=== PATIENT | female | born 1995 | race Caucasian/White ===

== ENCOUNTER 2022-03-24 14:32 | Emergency (ER) | payer BC ==
[2022-03-24 15:15] LABS: Urine Blood 3+ (Negative); Urine Glucose Negative (Negative); Urine Protein Negative (Negative); Urine Specific Gravity 1.025 (1.005-1.030)
[2022-03-24 15:25] LABS: Absolute Lymphocytes (CBC) 2.8 K/uL (0.7-4.9); Lymphocytes % 24.7 % (15.3-44.8); MPV 9.8 fL (7.6-11.3); RBC Red Blood Cell Count 4.75 M/uL (3.86-4.86)
[2022-03-24 15:55] LABS: Potassium 3.7 mmol/L (3.5-5.1)
[2022-03-24 16:15] LABS: Urine Specific Gravity/Preg 1.025 (1.005-1.030)
--- NOTE | 2022-03-24 17:16 | RAD REPORT ---
EXAM DESCRIPTION: US - Transvaginal OB - 03/24/2022 5:06 pm CLINICAL HISTORY: VAGINAL BLEEDING Positive test, pelvic pain COMPARISON: OB Limited dated 2OB Limited dated 03/24/2022 FINDINGS: Uterus is normal in size. Mildly thickened endometrium is seen measuring 9 mm. There is no IUP evident. Right ovary measures 3.3 x 2.1 cm. Normal blood flow seen in the right ovary. Left ovary appears obscured by bowel gas. No significant pelvic ascites. IMPRESSION: Thickened endometrial stripe is seen without evidence of IUP. In the setting of a positi ve HCG measurement, this would represent a of unknown location and close interval follow-up serial HCG levels and pelvic sonography would be recommended.
--- NOTE | 2022-03-24 17:18 | RAD REPORT ---
EXAM DESCRIPTION: US - OB Limited - 03/24/2022 5:02 pm CLINICAL HISTORY: VAG BLEEDING age. COMPARISON: No comparisons FINDINGS: A large is cystic lesion is seen in the pelvis superior to the uterus. This is of indeterminate etiol ogy but may represent a large ovarian cystadenoma or similar lesion. Given the patient's potential on going early , MRI of the pelvis could be considered for followup evaluation.
--- NOTE | 2022-03-24 19:03 | EDPHYS ---
Physician Documentation [facility] Name: Dru Mcduffie Age: 27 yrs Sex: Female : 1995 Arrival Date: 03/24/2022 Time: 14:37 Bed 20 Private MD: ED Physician Christian Dick HPI: 03/24 14:51 This 27 yrs old Female presents to ER via Ambulatory with complaints of Vaginal jmm Bleeding, + Preg <12wks, Abdominal Cramping. 14:51 This is a 27-year-old the presents emerged department with complaints of vaginal jmm bleeding with mild pelvic cramping. Symptoms began yesterday. Patient denies weakness or fatigue. Denies fever, denies dysuria.. Historical: - Allergies: 14:54 No Known Allergies; ph - PMHx: 14:54 None; ph - PSHx: 14:54 knee; ph - Immunization history:: Adult Immunizations unknown. - Social history:: Smoking status: Patient denies any tobacco usage or history of. ROS: 14:51 Constitutional: Negative for fever, chills, and weight loss, Cardiovascular: Negative jmm for chest pain, palpitations, and edema, Respiratory: Negative for shortness of breath, cough, wheezing, and pleuritic chest pain, Abdomen/GI: Negative for abdominal pain, nausea, vomiting, diarrhea, and constipation. 14:51 : Positive for vaginal bleeding. 14:51 All other systems are negative. Exam: 14:51 Constitutional: This is a well developed, well nourished patient who is awake, alert, jmm and in no acute distress. Head/Face: atraumatic. Eyes: EOMI, no conjunctival erythema appreciated ENT: Moist Mucus Membranes Neck: Trachea midline, Supple Chest/axilla: Normal chest wall appearance and motion. Cardiovascular: Regular rate and rhythm. No edema appreciated Respiratory: Normal respirations, no respiratory distress appreciated Abdomen/GI: Non distended, soft Back: Normal ROM Skin: General appearance color normal MS/ Extremity: Moves all extremities, no obvious deformities appreciated, no edema noted to the lower extremities Neuro: Awake and alert Psych: Behavior is normal, Mood is normal, Patient is cooperative and pleasant Vital Signs: 14:51 BP 146 / 86; Pulse 93; Resp 18; Temp 98.4; Pulse Ox 96% on R/A; Weight 104.33 kg; ph Height 5 ft. 9 in. (175.26 cm); 15:35 BP 120 / 68; Pulse 71; Resp 16; Pulse Ox 97% on R/A; jb4 17:45 BP 144 / 87; Pulse 63; Resp 16; Pulse Ox 97% on R/A; jb4 18:45 BP 118 / 70; Pulse 57; Resp 16; Pulse Ox 99% on R/A; jb4 14:51 Body Mass Index 33.96 (104.33 kg, 175.26 cm) ph MDM: 14:[address] [facility] 19:02 Data reviewed: vital signs, nurses notes. Counseling: I had a detailed discussion with leandro the patient and/or guardian regarding: the historical points, exam findings, and any diagnostic results supporting the discharge/admit diagnosis, the need for outpatient follow up, to return to the emergency department if symptoms worsen or persist or if there are any questions or concerns that arise at home. 03/24 14:58 Order name: Abo/rh Typing 03/24 14:58 Order name: Basic Metabolic Panel; Complete Time: 15:59 03/24 14:58 Order name: CBC with Diff; Complete Time: 15:59 03/24 14:58 Order name: Quantitative Hcg; Complete Time: 15:59 03/24 15:15 Order name: Urine Dipstick-Ancillary; Complete Time: 15:15 [facility] 03/24 15:15 Order name: Urine --Ancillary (enter results); Complete Time: 16:31 dh3 03/24 17:01 Order name: Transvaginal OB; Complete Time: 17:18 [facility] 03/24 17:46 Order name: ABO/RH no charge [facility] 03/24 17:54 Order name: Antibody Screen [facility] 03/24 17:54 Order name: Rh Typing [facility] 03/24 17:54 Order name: Fetalscreen EDID 03/24 17:54 Order name: Cord Rh type [facility] 03/24 17:54 Order name: Rhogam [facility] 03/24 14:58 Order name: IV Saline Lock; Complete Time: 15:15 ph 03/24 14:58 Order name: Labs collected and sent; Complete Time: 15:16 ph 03/24 14:58 Order name: NPO; Complete Time: 15:16 ph 05 14:58 Order name: Urine Dipstick-Ancillary (obtain specimen); Complete Time: 15:16 ph 06 14:58 Order name: Urine Test (obtain specimen); Complete Time: 15:16 ph 03/24 17:02 Order name: OB Limited; Complete Time: 17:23 EDMS Administered Medications: 19:00 Drug: RhoGAM (Human) 300 mcg Route: IM; Site: right deltoid; jb4 19:28 Follow up: Response: No adverse reaction jb4 Disposition Summary: 03/24/22 19:03 Discharge Ordered Location: Home [facility] Condition: Stable jmm Diagnosis - Threatened [facility] Followup: [facility] - With: Dillon Ybarra MD - When: 2 - 3 days - Reason: Recheck today's complaints, Continuance of care, Re-evaluation by your physician Discharge Instructions: - Discharge Summary Sheet jmm - Rh Incompatibility jmm - Threatened Miscarriage jm Forms: - Medication Reconciliation Form [facility] - Thank You Letter [facility] - Antibiotic Education jm - Prescription Opioid Use [facility] Signatures: Dispatcher [employer] EDMS Luis Alfredo Jeff PA PA Jaki Sheehan, RN RN Tyrone Echols, RN RN jb4 Corrections: (The following items were deleted from the chart) 17:01 15:26 1st Trimest Single 1st Fetus+US.RAD.BRZ ordered. EDMS EDMS
--- NOTE | 2022-03-24 19:03 | ER ---
Nurse's Notes [facility] Name: Dru Mcduffie Age: 27 yrs Sex: Female : 1995 Arrival Date: 03/24/2022 Time: 14:37 Bed 20 Private MD: Diagnosis: Threatened Presentation: 03/24 14:51 Chief complaint: Patient states: Approx 5 weeks , began having vaginal bleeding ph 2-3 days describes as spotting, only present after wiping, small clots today, also c/o mild cramping. Coronavirus screen: Vaccine status: Patient reports receiving the 1st dose of the Covid vaccine. Ebola Screen: No symptoms or risks identified at this time. Initial Sepsis Screen: Does the patient meet any 2 criteria? No. Patient's initial sepsis screen is negative. Does the patient have a suspected source of infection? No. Patient's initial sepsis screen is negative. Risk Assessment: Do you want to hurt yourself or someone else? Patient reports no desire to harm self or others. Onset of symptoms was March 24, 2022. 14:51 Method Of Arrival: Ambulatory ph 14:51 Acuity: JONATHON 3 ph Triage Assessment: 14:55 General: Appears in no apparent distress. comfortable, Behavior is cooperative, ph appropriate for age, crying. Pain: Complains of pain in suprapubic area Quality of pain is described as crampy. Neuro: Level of Consciousness is awake, alert, obeys commands, Oriented to person, place, time, situation. : Reports cramping, vaginal bleeding that is light flow, spotty. Derm: Skin is intact, is healthy with good turgor, Skin is pink, warm \T\ dry. Historical: - Allergies: 14:54 No Known Allergies; ph - PMHx: 14:54 None; ph - PSHx: 14:54 knee; ph - Immunization history:: Adult Immunizations unknown. - Social history:: Smoking status: Patient denies any tobacco usage or history of. Screenin:45 Abuse screen: Denies threats or abuse. Nutritional screening: No deficits noted. jb4 Tuberculosis screening: No symptoms or risk factors identified. Fall Risk None identified. Assessment: 15:35 Reassessment: Patient appears in no apparent distress at this time. Patient and/or jb4 family updated on plan of care and expected duration. Pain level reassessed. Patient is alert, oriented x 3, equal unlabored respirations, skin warm/dry/pink. 16:30 Reassessment: Patient appears in no apparent distress at this time. Patient and/or jb4 family updated on plan of care and expected duration. Pain level reassessed. Patient is alert, oriented x 3, equal unlabored respirations, skin warm/dry/pink. 17:45 Reassessment: Patient appears in no apparent distress at this time. Patient and/or jb4 family updated on plan of care and expected duration. Pain level reassessed. Patient is alert, oriented x 3, equal unlabored respirations, skin warm/dry/pink. 19:26 Reassessment: Patient appears in no apparent distress at this time. Patient and/or jb4 family updated on plan of care and expected duration. Pain level reassessed. Patient is alert, oriented x 3, equal unlabored respirations, skin warm/dry/pink. Vital Signs: 14:51 BP 146 / 86; Pulse 93; Resp 18; Temp 98.4; Pulse Ox 96% on R/A; Weight 104.33 kg; ph Height 5 ft. 9 in. (175.26 cm); 15:35 BP 120 / 68; Pulse 71; Resp 16; Pulse Ox 97% on R/A; jb4 17:45 BP 144 / 87; Pulse 63; Resp 16; Pulse Ox 97% on R/A; jb4 18:45 BP 118 / 70; Pulse 57; Resp 16; Pulse Ox 99% on R/A; jb4 14:51 Body Mass Index 33.96 (104.33 kg, 175.26 cm) ph ED Course: 14:05 Initial lab(s) drawn, by ct, sent to lab. Inserted saline lock: 20 gauge in right dh3 forearm, using aseptic technique. Blood collected. 14:37 Patient arrived in ED. rg4 14:46 Luis Alfredo Jeff PA is PHCP. jmm 14:46 Christian Dick MD is Attending Physician. jmm 14:54 Triage completed. ph 14:54 Arm band placed on Patient placed in an exam room. ph 15:35 Tyrone Echols, CJ is Primary Nurse. jb4 17:01 Transvaginal OB In Process Unspecified. EDMS 17:02 OB Limited In Process Unspecified. EDMS 18:45 Patient has correct armband on for positive identification. Bed in low position. Call jb4 light in reach. Side rails up X 1. Client placed on continuous cardiac and pulse oximetry monitoring. NIBP monitoring applied. 19:02 Dillon Ybarra MD is Referral Physician. [facility] 19:28 No provider procedures requiring assistance completed. IV discontinued, intact, jb4 bleeding controlled, No redness/swelling at site. Pressure dressing applied. Administered Medications: 19:00 Drug: RhoGAM (Human) 300 mcg Route: IM; Site: right deltoid; jb4 19:28 Follow up: Response: No adverse reaction jb4 Medication: 18:45 VIS not applicable for this client. jb4 Outcome: 19:03 Discharge ordered by . [facility] 19:28 Discharged to home ambulatory. jb4 19:28 Condition: stable 19:28 Discharge instructions given to patient, family, Instructed on discharge instructions, follow up and referral plans. Demonstrated understanding of instructions, follow-up care. 19:28 Patient left the ED. jb4 Signatures: Dispatcher [employer] EDMS Luis Alfredo Jeff PA PA Jaki Sheehan, RN RN Lori Thompson rg4 Tyrone Echols RN RN jb4 Nory Hein 3
[2022-03-24 19:33] VITALS: TEMP 98.4
[2022-03-24 19:39] VITALS: BP 118/70; O2SAT 99
== END 2022-03-24 19:28 | disposition home or self-care (01) ==
LOC: ER 14:32
DX: O20.0 Threatened abortion (principal); Z3A.01 Less than 8 weeks gestation of pregnancy
CPT/HCPCS: 85025; 80048; 36415; 86900; 86850; 81025; 86901 ×2; 84702; 81003; 76815; 76817; 96372; 99284; J2790

== ENCOUNTER 2024-02-02 19:07 | Emergency (ER) | payer BC ==
--- OUTSIDE RECORDS SUMMARY | 2024-02-02 19:10 | XMS REPORT | Continuity of Care Document ---
Author Name Unknown Address [address] [facility] [place] [address] [facility] Address [address] [facility] [address] [place] [address] Care Team Providers Care Conveyor Tender Name Role Phone CHRISTIANO_CLAIRE_Sebastian_J Attending Clinician Unavail able CHRISTIANO_WARNER_Sebastian_Pete Attending Clinician Unavaila Teressa Barber Attending Clinician Un available Jake Ramey Attending Clinician Unavailable CHRISTIANO_CLAIRE_Sebastian_Pete Admitting Clinician Unavail able CHRISTIANO_WARNER_Sebastian_Pete Admitting Clinician Unavaila Palomo Ross Admitting Clinician Unavailable Physician, No Primary or Family Admitting Clinic breanna Unavailable Payers Payer Name Policy Type Policy Number Effective Date Expirati on Date Source [place] [id number] 2023 00:00:00 [employer] (PPO) [id number] Problems Condition Name Condition Details Condition Category Status Onset Date Resolution Date Last Treatment Date Treating Clinician Comments Source RhD negative RhD Negative Problem Active 01-19 00:00: 00 [facility] Missed miscarriag e Missed Miscarriag e Problem Active 01-12 00:00: 00 [facility] Amenorrhea Amenorrhea Problem Active 12-16 00:00: 00 [facility] Allergies, Adverse Reactions, Alerts Allergy Name Allergy Type Status Severity Reaction(s) Onset Date Inactive Date Treating Clinician Comments Source No Known Allergie s DA Active U 8-03 00:00: 00 [facility] No Known Allergie s DA Active U 3-19 00:00: 00 [facility] Social History Smoking Status Start Date Stop Date Source Former Smoker [facility] Medications Ordered Medication Name Filled Medication Name Start Date Stop Date Current Medication? Ordering Clinician Indication Dosage Frequency Signature (SIG) Comments Components Source Baby Aspirin 81 mg chewable tablet Chew 1 tablet every day by oral route. Baby Aspirin 81 mg chewable tablet Chew 1 tablet every day by oral route. No 1 Q1D Baby Aspirin 81 mg chewable tablet Chew 1 tablet every day by oral route. [facility] No [facility] progesteron e micronized 100 mg capsule TAKE 1 CAPSULE BY MOUTH EVERY DAY progesteron e micronized 100 mg capsule TAKE 1 CAPSULE BY MOUTH EVERY DAY No progestero ne micronized 100 mg capsule TAKE 1 CAPSULE BY MOUTH EVERY DAY [facility] RhoGAM Ultra-Filte red PLUS 1,500 unit (300 mcg) intramuscul ar syringe Inject 1 syringe as needed by intramuscul ar route as directed for 1 day. RhoGAM Ultra-Filte red PLUS 1,500 unit (300 mcg) intramuscul ar syringe Inject 1 syringe as needed by intramuscul ar route as directed for 1 day. No 1syring e(s) RhoGAM Ultra-Filt ered PLUS 1,500 unit (300 mcg) intramuscu lar syringe Inject 1 syringe as needed by intramuscu lar route as directed for 1 day. [facility] Vital Signs Vital Name Observation Time Observation Value Comments S ource BP Systolic 2024-01-26 00:00:00 140 mm[Hg] [facility] Body Weight 2024-01-26 00:00:00 232 [lb_av] [facility] BMI (Body Mass Index) 2024-01-26 00:00:00 34.3 kg/m2 [facility] Height 2024-01-26 00:00:00 69 [in_i] [facility] BP Diastolic 2024-01-26 00:00:00 76 mm[Hg] [facility] BP Diastolic 2024-01-13 00:00:00 76 mm[Hg] [facility] Height 2024-01-13 00:00:00 69 [in_i] [facility] BP Systolic 2024-01-13 00:00:00 122 mm[Hg] [facility] BP Systolic 2023-12-15 00:00:00 118 mm[Hg] [facility] BMI (Body Mass Index) 2023-12-15 00:00:00 33.5 kg/m2 [facility] Height 2023-12-15 00:00:00 69 [in_i] [facility] BP Diastolic 2023-12-15 00:00:00 70 mm[Hg] [facility] Body Weight 2023-12-15 00:00:00 227 [lb_av] [facility] Procedures Procedure Date / Time Performed Performing Clinicia n Source US, obstetric, 1st trimester 2024-01-26 00:00:00 [facility] US, obstetric, 1st trimester 2024-01-12 00:00:00 [facility] US UTERUS 14 WK TRANSABDL GESTAT 2024-01-05 00:00:00 [facility] US, obstetric, 1st trimester 2024-01-05 00:00:00 [facility] US UTERUS 14 WK TRANSABDL GESTAT 2023-12-15 00:00:00 [facility] US, obstetric, 1st trimester 2023-12-15 00:00:00 [facility] Operation on Eyelid [facility] ed[facility] dical Ectopic [facility] Encounters Start Date/Time End Date/Time Encounter Type Admission Type Attending [facility] Care Facility Care Department Encounter ID Source 2024-01-26 00:00:00 2024-01-26 00:00:00 Slava Cortes MD: [address] [place] [address], [address], [place] [address] , Ph. CHRISTIANO_CLAIRE _Sebastian_Pete [facility] - CHRISTIANO_WARNER_ [place] Office* [id number] [facility] 2024-01-23 00:00:00 2024-01-23 00:00:00 Outpatient CHRISTIANO_WARNER_ Hemant [facility] [id number] [facility] 2024-01-20 00:00:00 2024-01-20 00:00:00 Slava Cortes MD: [address], [facility] [place] [address] , Ph. GC_WARNER_ Sebastian_J [facility] - GC_SWHAOMC_ [place] [id number] [facility] 2024-01-15 00:00:00 2024-01-15 00:00:00 Outpatient GC_MATTEO Cortes_J PRIV PRIV [id number] [facility] 2024-01-13 00:00:00 2024-01-13 00:00:00 Slava Cortes MD: [address] [place] [address], [address], [place] [address] , Ph. GC_WARNER_ Sebastian_Pete [facility] - GC_SWHAOMC_ [place] [facility]* [id number] [facility] 2024-01-06 00:00:00 2024-01-06 00:00:00 Outpatient GC_BULMAROCBoo Cortes_J PRIV PRIV [id number] [facility] 2024-01-05 00:00:00 2024-01-05 00:00:00 Slava Cortes MD: [address] [facility] [address], [address], [place] [address] , Ph. GC_MATTEO Cortes_Pete [facility] - GC_[facility]_ [place] [facility]* [id number] [facility] 2024-01-05 00:00:00 2024-01-05 00:00:00 Slava Cortes MD: [address] [place] [address], [address], [place] [address] , Ph. [facility] - GC_SWHAOMC_ [place] Office* [id number] [facility] 2023-12-30 00:00:00 2023-12-30 00:00:00 Outpatient GC_SWHAOMCBoo Cortes_J PRIV PRIV [id number] [facility] 2023-12-29 00:00:00 2023-12-29 00:00:00 Outpatient GC_LENNYOMC_ Sebastian_J PRIV PRIV [id number] [facility] 2023-12-20 00:00:00 2023-12-20 00:00:00 Outpatient GC_SWHAOMC_ Sebastian_J PRIV PRIV [id number] [facility] 2023-12-16 00:00:00 2023-12-16 00:00:00 Outpatient GC_BULMAROC_ Sebastian_J PRIV PRIV [id number] [facility] 2023-12-16 00:00:00 2023-12-16 00:00:00 Outpatient GC_LENNYOMC_ Sebastian_J PRIV PRIV [id number] [facility] 2023-12-15 00:00:00 2023-12-15 00:00:00 Slava Cortes MD: [address] [facility] [address], [address] [address] , Ph. GC_LENNYOMC_ Sebastian_J [facility] - GC_SWHAOMC_ [place] [facility]* [id number] [facility] 2023-12-15 00:00:00 2023-12-15 00:00:00 Slava Cortes MD: [address] [facility] [address], [address] [address] , Ph. [facility] - GC_SWHAOMC_ [place] [facility]* [id number] [facility] 2023-12-14 00:00:00 2023-12-14 00:00:00 Outpatient PRIV PRIV [id number] [facility] 2022-05-23 09:04:00 2022-05-23 09:04:00 Outpatient Teressa Brian [facility] [id number] [facility] 2022-05-23 09:04:00 2022-05-23 09:04:00 Outpatient Teressa Brian [facility] [id number] [facility] 2022-01-05:35:00 2022-01-05 12:22:00 Emergency EM Jake Ramey [facility] [id number] 33 [facility] Results Test Description Test Time Test Comments Results Result Co mments Source [facility] subunit [Units/volume] in Serum or Plasma 2024-01-12 00:00:00* Test Item Value Reference Range Interpretation Comme nts HCG (test code = HCG) 81277 mIU/mL [facility]horiogonadotropin.beta subunit [Units/volume] in Serum or Plasma 2024-01-07 00:00:00* Test Item Value Reference Range Interpretation Comme nts HCG (test code = HCG) 09258 mIU/mL [facility] Free [Mass/volume] in Serum or [id number] 00:00:00* Test Item Value Reference Range Interpretation Comme nts progesterone (test code = progesterone) 5.81 NG/mL [facility]horiogonadotropin.beta subunit [Units/volume] in Serum or Plasma 2024-01-07 00:00:00* Test Item Value Reference Range Interpretation Comme nts HCG (test code = HCG) 66303 mIU/mL [facility] Free [Mass/volume] in Serum or [id number] 00:00:00* Test Item Value Reference Range Interpretation Comme nts progesterone (test code = progesterone) 5.81 NG/mL [facility]iogonadotropin.beta subunit [Units/volume] in Serum or Plasma 2024-01-05 00:00:00* Test Item Value Reference Range Interpretation Comme nts HCG (test code = HCG) 62084 mIU/mL [facility] Free [Mass/volume] in Serum or [id number] 00:00:00* Test Item Value Reference Range Interpretation Comme nts progesterone (test code = progesterone) 7.68 NG/mL [facility]horiogonadotropin.beta subunit [Units/volume] in Serum or Plasma 2024-01-05 00:00:00* Test Item Value Reference Range Interpretation Comme nts HCG (test code = HCG) 61233 mIU/mL [facility] Free [Mass/volume] in Serum or [id number] 00:00:00* Test Item Value Reference Range Interpretation Comme nts progesterone (test code = progesterone) 7.68 NG/mL [facility]iogonadotropin.beta subunit [Units/volume] in Serum or Plasma 2023-12-25 00:00:00* Test Item Value Reference Range Interpretation Comme nts HCG (test code = HCG) 5627 mIU/mL [facility]iogonadotropin.beta subunit [Units/volume] in Serum or Plasma 2023-12-25 00:00:00* Test Item Value Reference Range Interpretation Comme nts HCG (test code = HCG) 5627 mIU/mL [facility]iogonadotropin.beta subunit [Units/volume] in Serum or Plasma 2023-12-22 00:00:00* Test Item Value Reference Range Interpretation Comme nts HCG (test code = HCG) 3098 mIU/mL [facility] Free [Mass/volume] in Serum or [id number] 00:00:00* Test Item Value Reference Range Interpretation Comme nts progesterone (test code = progesterone) 9.24 NG/mL [facility]horiogonadotropin.beta subunit [Units/volume] in Serum or Plasma 2023-12-22 00:00:00* Test Item Value Reference Range Interpretation Comme nts HCG (test code = HCG) 974 mIU/mL [facility] Free [Mass/volume] in Serum or [id number] 00:00:00* Test Item Value Reference Range Interpretation Comme nts progesterone (test code = progesterone) 7.54 NG/mL [facility]horiogonadotropin.beta subunit [Units/volume] in Serum or Plasma 2023-12-16 00:00:00* Test Item Value Reference Range Interpretation Comme nts HCG (test code = HCG) 168 mIU/mL [facility]horiogonadotropin.beta subunit [Units/volume] in Serum or Plasma 2023-12-16 00:00:00* Test Item Value Reference Range Interpretation Comme nts HCG (test code = HCG) 168 mIU/mL [facility] Free [Mass/volume] in Serum or [id number] 00:00:00* Test Item Value Reference Range Interpretation Comme nts progesterone (test code = progesterone) 11.30 NG/mL [facility] Free [Mass/volume] in Serum or [id number] 00:00:00* Test Item Value Reference Range Interpretation Comme nts progesterone (test code = progesterone) 11.30 NG/mL [facility] [id number] 13:41:00* Test Item Value Reference Range Interpretation Comme nts SURGICAL (test code = SR) RUN DATE: 05/27/22 [facility] PAGE 1 RUN TIME: 1341 Specimen Inquiry RUN USER: INTERFACE BURT ENT: JOSE ARMANDO HAIRSTON LOC: [facility] U #: [id number] AGE/SX: 27/F ROOM: RE05/23/22REG DR: Teressa Miles : 95 BED: DIS: STATUS: KAYLA ISSA TLOC: SPEC #: [id number] RECD: 05/24/22 STATUS: MORE DICKSON #: [id number] SUSIE: 05/23/22-[address]: Teressa Miles MD ENTERED: 05/24/22 SP TYPE: SURGICAL OTHR DR: Palomo Gramajo MD ORDERED: 69512/2, ANATOMIC SPEC, SPECIMEN TRACK COPIES TO: Teressa Miles MD [address] [facility] [place] [address] [place] [address] Palomo Gramajo MD [address] [place] [address] [address] [place] [address] PROCEDURES: [id number] (05/24/22) SPECIMEN TRACK (05/24/22) TISSUES: A. CYST--CERVIX - LEFT CYST B. TUBAL LIGATION - RIGHT TUBAL CONTENT FINAL DIAGNOSIS A. Designated left paraovarian-tubal cyst, excision:- Serous cystadenoma B. Designated right tubal contents:- Ectopic tubal (blood clot containing minute rare chrorionic villi) Comment: Negative for atypia/malignancy. The HCG urine test was reported as negative. Howevermorphologically, very scant minute chorionic villi is present within abundant blodd clots.Suggest clnical correlation. GROSS DESCRIPTION A. Left paravarian-tubal cyst.It consists of a collapsed cyst measuring 10 x 5 x 8 cm and has awall thickness 0.2-0.4 cm. The cyst lining is vascular and smooth. No papillaryexcrescences are identified. Multiple sections submitted as A1-A8. B. Right tube contents. It consists of blood clot measuring aggregate 2.5 x 2 x 0.5 cm. All as B1. CONTINUED ON NEXT PAGE RUN DATE: 05/27/22 [facility] PAGE 2 RUN TIME: 1341 Specimen Inquiry RUN USER: INTERFACE SPEC #: [id number]:[facility]:[id number] PATIENT: JOSE ARMANDO HAIRSTON #[id number] (Continued) ------- GROSS DESCRIPTION (Continued) Technical component performed at [employer],[id number] , [place] [address] Unless gross only, the diagnosis is based upon microscopic examination.Immunohistochemistry : This test was developed and its performancecharacteristics determined by this laboratory. It has not been approved nordoes it need approval by the [place] FDA. Appropriate positive and negative controlsare reviewed and judged to be acceptable. This laboratory is certified underthe Clinical Laboratory Improvement Amendments (CLIA-88) as qualified toperform high complexity clinical laboratory testing. MICROSCOPIC DESCRIPTION Findings are incorporated into the diagnosis/comment sections. Signed SIGNATURE ON FILE Marito Hernández 05/27/22 1341 END OF REPORT CYTOLOGY NON [id number] 13:40:00* Test Item Value Reference Range Interpretation Comme nts CYTOLOGY NON ELECTRO OPTICS ENGINEER (test code = CR) RUN DATE: 05/27/22 [facility] PAGE 1 RUN TIME: 1340 Specimen Inquiry RUN USER: INTERFACE BURT ENT: JOSE ARMANDO HAIRSTON LOC: [facility] U #: [id number] AGE/SX: 27/F ROOM: RE05/23/22[facility] DR: Teressa Miles : 95 BED: DIS: STATUS: KAYLA ISSA TLOC: SPEC #: [id number] RECD: 05/24/22 STATUS: MORE DICKSON #: [id number] SUSIE: 05/23/[address] [facility] [address]: Teressa Miles MD ENTERED: 05/24/22 SP TYPE: CYTO NGYN OTHR DR: Palomo Gramajo MD ORDERED: [id number], [id number], ANATOMIC SPEC, SPECIMEN TRACK COPIES TO: Teressa Miles MD [address] [place] [address] [address] [place] [address] Palomo Gramajo MD [address] [place] [address] [address] [place] [address] PROCEDURES: [id number] (05/27/22) 72221 (05/27/22) SPECIMEN TRACK (05/24/22) TISSUES: A. PELVIC FLUID - PELVIC WASHINGS (CYTOLOGY) FINAL DIAGNOSIS Pelvic washings, cytology and cell block:- Benign- Consistent with minute serous papillary formation, cytologically without atypia Comment: Please refer to concomitant surgical specimen [id number]. Suggest clinical correlation. GROSS DESCRIPTION Pelvic washing. It consists of 35 cc of colorless clear fluid. It is submitted forcytologic preparation. Thin prep: 1 Cell block: 1 Technical component performed at [facility] [address] , [place] [address] Unless gross only, the diagnosis is based upon microscopic examination.Immunohistochemistry : This test was developed and its performancecharacteristics determined by this laboratory. It has not been approved nor CONTINUED ON NEXT PAGE RUN DATE: 05/27/22 [facility] PAGE 2 RUN TIME: 1340 Specimen Inquiry RUN USER: INTERFACE SPEC #: [id number]:[facility]:[id number] PATIENT: JOSE ARMANDO HAIRSTON #[id number] (Continued) ------- GROSS DESCRIPTION (Continued) does it need approval by the FDA. Appropriate positive and negative controlsare reviewed and judged to be acceptable. This laboratory is certified underthe Clinical Laboratory Improvement Amendments (CLIA-88) as qualified toperform high complexity clinical laboratory testing. MICROSCOPIC DESCRIPTION Findings are incorporated into the diagnosis/comment sections. Signed SIGNATURE ON FILE HernándezMarito 05/27/22 1340 END OF REPORT COVID 19 INHOUSE [id number] 10:30:00* Test Item Value Reference Range Interpretation Comme nts COVID 19 INHOUSE AG (test code = [id number]) NEGATIVE Negative Per senior dentist , negative results should be treated aspresumptive and, if inconsistent with clinical signs andsymptoms or necessary for patient management, should betested with an alternative molecular assay. Negative resultsdo not preclude SARS-CoV-2 infection and should not be usedas the sole basis for patient management decisions. Negative results should be considered in the context of apatient's recent exposures, history, presence of clinicalsigns and symptoms consistent with COVID-19. URINALYSIS [id number] 10:13:00* Test Item Value Reference Range Interpretation Comme nts UA GLUCOSE DIPSTICK (test code = DGLUU) NEGATIVE mg/dL NEG UA BILIRUBIN DIPSTICK (test code = BILU) NEGATIVE mg/dL NEG UA KETONE DIPSTICK (test code = KETU) NEGATIVE mg/dL NEG UA SPECIFIC GRAVITY (test code = SGU) <=1.005 SG 1.005-1.030 UA BLOOD DIPSTICK (test code = SAY) 2+ mg/DL NEG A UA PH DIPSTICK (test code = XAVI) 6.5 pH UNITS 5.0-7.0 UA PROTEIN DIPSTICK (test code = PROU) NEGATIVE mg/dL NEG UA UROBILINIOGEN DIPSTICK (test code = URO) 0.2 mg/dL <2.0 UA NITRITE DIPSTICK (test code = TRESA) NEGATIVE SCREEN NEG UA LEUKOCYTE ESTERASE DIPSTICK (test code = LEUU) NEGATIVE Leuk/mcL NEGATIVE Urine Specimen Type: Clean CatchUR HCG [id number] 10:13:00* Test Item Value Reference Range Interpretation Comme nts UR HCG QUAL (test code = HCGQLU) NEGATIVE NEGATIVE Urine Specimen Type: Clean CatchCBC W/AUTO [id number] 10:13:00* Test Item Value Reference Range Interpretation Comme nts WHITE BLOOD CELL (test code = WBC) 7.4 K/mm3 3.5-11.0 N RED BLOOD CELL (test code = RBC) 4.78 M/mm3 4.70-6.10 N HEMOGLOBIN (test code = HGB) 14.0 G/DL 10.4-14.9 N HEMATOCRIT (test code = HCT) 41.3 % 31.5-44.1 N MEAN CELL VOLUME (test code = MCV) 86.4 Fl 84.5-98.6 N MEAN CELL HGB (test code = MCH) 29.3 pg 27.0-34.2 N MEAN CELL HGB CONCETRATION (test code = MCHC) 33.9 G/DL 31.5-34.0 N RED CELL DISTRIBUTION WIDTH (test code = RDW) 12.5 SD 11.5-14.5 N PLATELET COUNT (test code = PLT) 215 K/mm3 150-450 N MEAN PLATELET VOLUME (test c ode = MPV) 11.10 fL 7.0-10.5 H NEUTROPHIL % (test code = NT%) 52.8 % 40-76 N IMMATURE GRANULOCYTE % (test code = IG%) 0.4 % 0.0-5.0 N LYMPHOCYTE % (test code = LY%) 35.4 % 20.5-51.1 N MONOCYTE % (test code = MO%) 8.7 % 1.7-9.3 N EOSINOPHIL % (test code = EO%) 2.2 % 0.0-6.0 N BASOPHIL % (test code = BA%) 0.5 % 0.0-2.0 N NUCLEATED RBC % (test code = NRBC%) 0.0 /100WBC% 0.0-1.0 N NEUTROPHIL # (test code = NT#) 3.9 K/mm3 1.8-7.6 N IMMATURE GRANULOCYTE # (test code = IG#) 0.03 x10 3/uL 0.00-0.03 N LYMPHOCYTE # (test code = LY#) 2.6 K/mm3 0.6-3.2 N MONOCYTE # (test code = MO#) 0.6 K/mm3 0.3-1.1 N EOSINOPHIL # (test code = EO#) 0.2 K/mm3 0.0-0.4 N BASOPHIL # (test code = BA#) 0.0 K/mm3 0.0-0.1 N NUCLEATED RBC # (test code = NRBC#) 0.0 K/mm3 0.0-0.1 N MANUAL DIFF REQUIRED (test c ode = MDIFF) NO DIFF/SCN CRITERIA BASIC METABOLIC [id number] 11:27:00* Test Item Value Reference Range Interpretation Comme nts SODIUM (test code = NA) 143 mEq/L 134-147 N POTASSIUM (test code = K) 3.8 mEq/L 3.4-5.0 N CHLORIDE (test code = CL) 107 mEq/L 100-108 N CARBON DIOXIDE (test code = CO2) 24 mEq/l 21-33 N ANION GAP (test code = GAP) 15 0-20 N GLUCOSE (test code = GLU) 88 mg/dL 70-110 N BLOOD UREA NITROGEN (test code = BUN) 10 mg/dL 7-18 N GLOMERULAR FILTRATION RATE (test code = GFR) 75.7 110-120 L Units of measure = ml/min/1.73 m2 CREATININE (test code = CREAT) 0.9 mg/dL 0.6-1.3 N CALCIUM (test code = CA) 9.5 mg/dL 8.0-10.5 N HCG [id number] 11:27:00* Test Item Value Reference Range Interpretation Comme nts HCG SERUM (test code = HCG) < 2.6 0 - 6 NOT PREGNA NT > 6 SUGGESTIVE OF EARLY RISES TWO FOLD EVERY 2 DAYS; SUGGEST RECONFIRMING AFTER 2 DAYS. 150,000-200,[address] TRIMESTER 10,000 - 50,000 2ND & 3RD TRIMESTERResults in nic-International Units/mL UA RFLX MICR CULT IF [id number] 11:20:00* Test Item Value Reference Range Interpretation Comme nts UA COLOR (test code = COLU) ALVARO YEL/STRAW A UA APPEARANCE (test code = APPU) CLOUDY CLEAR A UA GLUCOSE DIPSTICK (test co de = DGLUU) NEGATIVE NEGATIVE UA BILIRUBIN DIPSTICK (test code = BILU) NEGATIVE NEGATIVE UA KETONE DIPSTICK (test cod e = KETU) NEGATIVE NEGATIVE UA SPECIFIC GRAVITY (test co de = SGU) 1.026 1.005-1.030 N UA BLOOD DIPSTICK (test code = SAY) 3+ NEGATIVE A UA PH DIPSTICK (test code = XAVI) 5.0 5.0-7.0 N UA PROTEIN DIPSTICK (test co de = PROU) 2+ NEGATIVE A UA UROBILINIOGEN DIPSTICK (t est code = URO) 0.2 mg/dL 0.2-1.0 UA NITRITE DIPSTICK (test co de = TRESA) NEGATIVE NEGATIVE UA LEUKOCYTE ESTERASE DIPSTI CK (test code = LEUU) NEGATIVE NEGATIVE UA WBC (test code = WBCU) >50 WBC/HPF 0-3 A UA RBC (test code = RBCU) >50 RBC/HPF 0-3 A UA WBC NO REFLEX (test code = WBCUCL) >50 WBC/HPF 0-3 A UA BACTERIA (test code = BACU) 2+ /HPF NONE SEEN A UA SQUAMOUS CELLS (test code = SQU) 0-5 /HPF NONE SEEN UA MUCUS (test code = MUCU) 2+ /LPF NONE SEEN A Indication for culture: Suprapubic PainSpecimen Description: CLEAN CATCHCBC W/AUTO [id number] 11:14:00* Test Item Value Reference Range Interpretation Comme nts WHITE BLOOD CELL (test code = WBC) 9.0 x10 3/uL 4.5-11.0 N RED BLOOD CELL (test code = RBC) 5.16 x10 6/uL 3.54-5.02 H HEMOGLOBIN (test code = HGB) 15.2 g/dL 11.0-15.0 H HEMATOCRIT (test code = HCT) 45.5 % 33.0-45.0 H MEAN CELL VOLUME (test code = MCV) 88.2 fL 81.0-99.0 N MEAN CELL HGB (test code = MCH) 29.5 pg 27.0-33.0 N MEAN CELL HGB CONCETRATION (test code = MCHC) 33.4 g/dL 33.0-37.0 N RED CELL DISTRIBUTION WIDTH CV (test code = RDW) 12.2 % 11.5-14.5 N PLATELET COUNT (test code = PLT) 266 x10 3/uL 150-400 N NEUTROPHIL % (test code = NT%) 62.8 % 56.0-77.0 N LYMPHOCYTE % (test code = LY%) 27.1 % 14.0-32.0 N NEUTROPHIL # (test code = NT#) 5.67 x10 3/uL 2.0-7.6 N LYMPHOCYTE # (test code = LY#) 2.45 x10 3/uL 1.0-3.8 N MANUAL DIFF REQUIRED (test c ode = MDIFF) NO RED CELL DISTRIBUTION WIDTH SD (test code = RDW-SD) 39.6 fL 37.0-54.0 N MEAN PLATELET VOLUME (test c ode = MPV) 11.9 fL 7.0-9.0 H IMMATURE GRANULOCYTE % (test code = IG%) 0.3 % 0.0-2.0 N MONOCYTE % (test code = MO%) 7.2 % 4.8-9.0 N EOSINOPHIL % (test code = EO%) 1.9 % 0.3-3.7 N BASOPHIL % (test code = BA%) 0.7 % 0.0-2.0 N NUCLEATED RBC % (test code = NRBC%) 0.0 % 0-0 N IMMATURE GRANULOCYTE # (test code = IG#) 0.03 x10 3/uL 0.00-0.03 N MONOCYTE # (test code = MO#) 0.65 x10 3/uL 0.1-0.8 N EOSINOPHIL # (test code = EO#) 0.17 x10 3/uL 0.0-0.2 N BASOPHIL # (test code = BA#) 0.06 x10 3/uL 0.0-0.2 N NUCLEATED RBC # (test code = NRBC#) 0.00 x10 3/uL 0.0-0.1 N Notes Date/Time Note Provider Source 2022-05-24 23:15:00 [id number] [id number] [address] [place] [address] PATIENT NAME: JOSE ARMANDO HAIRSTON ADMIT DATE: 05/23/22ACCOUNT NO: [id number] ROOM NO: AGE: 27 REPORT TYPE: OPERATIVE REPORT SEX: F ADMITTING PHYSICIAN: ATTENDING PHYSICIAN: Teressa Miles MD OPERATION DATE: 05/23/2022 PREOPERATIVE DIAGNOSES: Large pelvic mass, bloating, recent SAB. POSTOPERATIVE DIAGNOSES: Left paraovarian paratubal cyst that is 20 cm; righttubal mass, likely hematosalpinx, question from a prior ectopic. PROCEDURES PERFORMED: Diagnostic laparoscopy, removal of left paraovarian andtubal cyst after aspiration in a bag. Pelvic washings, right salpingostomy, andchromotubation. SURGEON: Teressa Miles MD CAKE PRESS OPERATOR HELPER: Mer Beckford. ANESTHESIA: General endotracheal. FINDINGS: Large left paraovarian paratubal cystic mass with a smooth lining andclear fluid, drained about 2 liters, right tubal mass was noted, right at thebeginning of the procedure, which appeared to be cystic mass with contents ofold blood in it, likely suspicious from recent ectopic . Onchromotubation, both tubes were now patent; however, they could happen tubalspasm from all the surgery that was done on the left side as opposed to theright. COMPLICATIONS: No complications. DRAINS: FINDINGS: Again, no endometriosis was noted to significant level. SPECIMENS: Left ovarian cyst, pelvic washings, and contents of the right tube. FLUIDS: LR. ESTIMATED BLOOD LOSS: 1500 mL. URINE OUTPUT: 300 mL. APPROACH: Laparoscopic. All counts correct. CONDITION: The patient's condition is stable. PATIENT NAME: JOSE ARMANDO HAIRSTON INDICATIONS: The patient is a 27-year-old 1, para 0-0-1-0, who wasreferred to me from Dr. Ybarra for a large pelvic mass. At that visit, it was found that the patient was going through the process of a miscarriage and her hCG levels have come down all the way to normal, over the past 6 weeks. The patient denied any pelvic pain, pressure. On questioning multiple times,maybe some abdominal distention, but no other symptoms at all completely duringthe miscarriage or preceding that. Her periods have been always normal andwithout any cramping or pain. They have been irregular in the past, but havebecome more regular the recent months. She was consented. Her CA-125 was normal for ovarian cystectomy, possibleoophorectomy, and possible chromotubation, if there is any surgery to the tubes. PROCEDURE IN DETAIL: After informed consent was verified, the patient was takenback to the OR, placed in supine fashion on the operating table. Generalanesthesia was given. She was placed in dorsal lithotomy position using Allenstirrups. Abdomen, vulva, vagina, and perineum prepped and draped in sterilefashion. Time-out was done. Arms tucked by the side after positioning waschecked and SCDs were started. The case was started. Speculum was placed to expose the cervix and diagnostic uterine manipulator wasintroduced into the uterus and fixed in place. Pleitez was placed to drain thebladder. This area was draped. A 1 cm supraumbilical incision made with a scalpel and using open laparoscopytechnique, fascia was incised, tagged with 0 Vicryl sutures. Peritoneum enteredsharply and Regis introduced. Site of entry was checked and was unremarkable.The large ovarian cyst was very evident all the way up to the umbilicus. Upperabdominal survey was closely inspected and omentum all unremarkable. The patient was placed in T-alex, 5 right and left lower quadrant and 5 leftupper quadrant ports were placed. Pelvic washings were done. Laparoscopic ene needle was taken and in the most dependent part of the cyst,[place] was used to hop picker the wall of the cyst and needle entry was made in the ovarian capsule and in the epithelium covering the cyst and into the cyst wall. Once the fluid was drained. This was drained in 2 passes adjacent to each other and closed with PDS loops. There was no gross leakage of cyst fluid. Then, procedure was started. Cyst was appearing to be arising from the left paratubal paraovarian area. The ovary was immediately inferior to the cyst and then the tube was significantly stretched out all the way from its normal position at the cornual end to the distal fimbriated end that was on top of the 20 cm cystic mass with tubal length was at least the length of the mass. Incidental finding of right tubal swelling with appearance of old blood or clot,possibly a remnant of an ectopic that is resolving, was seen. Rightovary unremarkable. Peritoneal surfaces, normal. Uterus is small. Plan was to make a salpingotomy on the antemesenteric side and contents of the PATIENT NAME: JOSE ARMANDO HAIRSTON right tube to be evacuated. Then, on the left side, incision was made on the mesosalpinx to open up the cyst wall and access the cyst. Cyst wall was exposed and once I got into the right plane, the entire cyst was carefully dissected from its base and then carefully dissected from the mesosalpinx area where it was closely approximated with the tube. The tube was preserved in its entire length and the fimbriated end was dissected off the cyst wall and left intact and the cyst was excised completely.This seemed densely attached to the left lateral aspect of the ovary. The cyst was placed in EndoCatch bag and pulled out through the umbilicalincision. There was excellent hemostasis in this area. The ovary and tube appeared to bepink and even after 15 minutes from the dissection of the paratubal cyst, thetube appeared to be nice and viable without any compromise of blood supply. The salpingotomy was performed with the help of the tip of monopolar scissors onthe tubal side opposite from the mesosalpinx, at least a centimeter, incisionwas made, opened up, flushed with the solution architect, and then contents removed andhanded off for permanent pathology. Once all these were done, chromotubation was performed with methylene blue, atleast 40 mL of dilute methylene blue was injected, and there was no filling orspill of the tubes, most likely from spasm, also extravasation through theposterior aspect of the cervix. Likely from the tubal surgery on both the tubes, there could be spasm andocclusion secondary to this, given the extent of surgery that was done at thistime, plan to follow up with hysterosalpingogram in 3 months. This probablywould have a better probability of showing 2 results. Thorough irrigation and suction was performed in the entire pelvic cavity. Allthe trocars were removed. Gas was desufflated. After the fascia at the umbilicus was closed with the help of 0 Vicryl suture and all the skin incisions with 4- 0 Vicryl in an interrupted fashion. Pleitez and the uterine manipulator were removed. Instrument and sponge counts correct. The patient was recovered from anesthesia and taken to PACU in stable condition. All these findings were carefully debriefed with the and explained therecould have been difficulty understanding that the tubal mass on the right sideand the large ovarian cyst were actually distinct processes due to the sheersize of the cyst. All the findings will be explained to the patient as well ather appointment. Salient features were discussed with the and will becommunicated to the patient. Dictated By: Teressa Miles MD WT: OP:LSHORTY/SHAHRZAD/CARENDD: 05/24/2022 23:15:33DT: 05/25/2022 00:08:38Conf#: [id number]/DID#: [id number] Authenticated and Edited by Teressa Miles MD On 06/06/22 8:29:21 AM PATIENT NAME: JOSE ARMANDO HAIRSTON at 0831 PATIENT NAME: JOSE ARMANDO HAIRSTON [id number]:08:00L.[id number] lable for patient [id number]-65R96:31:57 [facility] 2022-05-23 12:45:00 [id number]Jk5a HeRuMoQ6ZEHKIWU4f+tHSz7k41OJQZt8467-15-82N72:45:[address] [facility] HospitalBrief Op NoteREPORT#:[id number] REPORT STATUS: SignedDATE:05/23/22 TIME:1245 PATIENT: JOSE ARMANDO HAIRSTON UNIT #: [id number]#: [id number] ROOM/BED:: 95 AGE: 27 SEX: F ATTEND: Teressa Miles [facility] AUTHOR: Teressa Miles MD * ALL edits or amendments must be made on the electronic/computer document * Op/Inv Proc Note - BriefPre-procedure diagnosis:Large pelvic mass, bloating, recent SAB Post-procedure diagnosis: Left para ovarian-tubal cyst 20cm, Rt tubal mass, hematosalpinx (? ectopic)Procedures performed:Diag laparoscopy, removal of left para ovarian-tubal cyst, pelvic washings, Right salpingostomy, ChromotubationPrimary Surgeon:Kortneyt(s): Jeffrey BeckfordAnesthesia: general anesthesiaFindings:large left para-ovarian/ tubal cyst, right tubal mass, ? ectopic, tubes not patent with chromotubation, ? tubal spasmComplications: noneEstimated blood loss in ml's: none, 100Specimens removed/altered: rt ovarian cyst, pelvic washingsFluids:1500 Urine output:300Approach: laparoscopicWound class: cleanDisposition: plan to D/C homeCounts: Sponge count: correct Instrument count: correct Needle count: correct at 1638 RPT #: [id number] OF REPORT OPOperative jokkjj0474-57-59X54:45:00L.[id number] ilable for patient lmsmUWCPDNPNFXVETX7193-59-45B56:38:38 [facility] 2022-01-05 11:20:00 [id number]+FLewUIS l4LdLNVbqyC2V0kveKx+MwQ7Iak1869-61-91K76:20:00 [facility] ([facility])EMERGENCY PROVIDER REPORTREPORT#:[id number] REPORT STATUS: SignedDATE:01/05/22 TIME: 1120 PATIENT: JOSE ARMANDO HAIRSTON UNIT #: [id number]#: [id number] ROOM/BED:AGE: 26 SEX: F PCP PHYS: Palomo Gramajo MDSERVICE AUTHOR: Go Case CHIEF PRIVACY OFFICER * ALL edits or amendments must be made on the electronic/computer document * Go Case 01/05/22 1120:HPI-General Illness Free Text HPI NotesFree Text HPI NotesPatient is a 26-year-old female , unknown status presents to ED for 2 weeks vaginal bleeding worsened 3 days ago with passage of large clots. Denies abdominal pain, change in urination or bowel habits, nausea vomiting diarrhea, no headache, changes in vision, dizziness.No PMH reported, surgical history of right knee as a child, reports no home medscurrently taking.NKDA.Previous smoker, quit 9 months prior, denies EtOH, denies recreational drug use. GeneralConfirmed Patient YesInitial Greet Date/Time 01/05/22 1037 PresentationChief Complaint Vaginal bleeding Review of Systems ROS StatementsAll systems rev neg except as marked. Past Medical History - AdultStated Complaint BLEEDING BLOOD CLOTSAllergiesCoded Allergies:No Known Allergies (03/19/22) Calculated Suicide Risk (nurs) No riskSmoking status: Smoking status for patients 13 years old or older: Former Smoker Physical Exam Vital SignsVital SignsFirst Documented: Result Date Time Pulse Ox 98 01/05 1047 B/P 162/107 01/05 1047 B/P Mean 125 01/05 1047 O2 Delivery Room air 01/05 1047 Temp 97.4 01/05 1047 Pulse 94 01/05 1047 Resp 20 01/05 1047 Last Documented: Result Date Time Pulse Ox 98 01/05 1047 B/P 162/107 01/05 1047 B/P Mean 125 01/05 1047 O2 Delivery Room air 01/05 1047 Temp 97.4 01/05 1047 Pulse 94 01/05 1047 Resp 20 01/05 1047 Review of Vital Signs Reviewed, Vital signs abnormal (HTN) Physical ExamGeneral/Const General/Const Awake, Alert, Well appearingMS Head Head NormocephalicEyes Eyes PERRLEars/Nose/Throat Ears/Nose/Throat Airway patent, Mucous membranes moist, Pharynx NLMS Neck Neck Supple, No meningismus, Full range of motion, No swelling, Non-tender, No massesResp/Chest Respiratory/Chest Breath sounds NL, Breath sounds = bilat, No respiratory distress, No rales, No rhonchi, No wheezingCardiovascular Cardiovascular Heart rate NL, Regular rhythm, Heart sounds NL, Cap refill notdelayed, Peripheral circulation NLAbdomen/GI Abdomen/GI Soft, Non-tender, No guarding, No reboundMS Back Back Inspection NL, Painless range of motion, Non-tender, No CVA tendernessLymphatic Lymphatic No gross adenopathyMS Upper Extrem Upper Extremity/MS Inspection NL, No swelling, Non-tender, No erythema, No deformity, Neurologic intact, Vascular intact, No clubbing/cyanosisMS Wrist/Hand Wrist/Hand Inspection NL, No swelling, No erythema, Non-tender, No deformity,Neurologic intact, Vascular intact, No clubbing/cyanosisMS Lower Extrem Lower Ext/Pelvis/MS Inspection NL, No swelling, Non-tender, No erythema, No deformity, Neurologic intact, Vascular intact, No edemaMS Ankle/Foot Ankle/Foot Inspection NL, No swelling, No erythema, Non-tender, No deformity,Neurologic intact, Vascular intact, No edemaSkin Skin Color NL, Warm, Dry, Turgor NLGenitourinary Female Genitourinary External genitalia NL, No bleeding, No discharge, No cervical motion tend, Os closed, No adnexal mass, No adnexal tenderness, No uterine enlargement, No uterine mass, No lesions or rashNeurologic Neurologic Oriented X3, Speech NL, No motor deficits, No sensory deficitsPsychiatric Psychiatric Affect NL, Mood NL, Thought content NL Interpretation Diagnostics Point of Care TestingUrinalysis Interpretation Positive blood, Positive leukocyte est, Positive nitrite, Positive RBC's, Positive WBC's, Positive bacteriaPulse Oximetry Pulse Ox % 98 On: Room air Interpretation Interpreted by me, Pulse oximetry normal Time 1047Pregnancy Test Negative - serum HCG Lab StudiesCBC Interpretation CBC NL Re-Evaluation MDM Free Text MDM NotesFree Text MDM [id number] results reviewed, no concern for anemia secondary to increased vaginal bleeding. Patient is hemodynamically stable, in no distress. Plan to dischargehome with medications to treat UTI, follow-up with OB next week. 12:11Patient reports marked improvement in symptoms. Vaginal bleeding has slowed significantly. Remains pain-free, NAD noted or reported. Shared results of laboratory studies including urinalysis. She will plan to DC home with antibiotics for urinary tract infection, follow-up with Dr. Ybarra next week. Verbalized understanding and agreement with plan. Patient Discharge Departure Vital Signs/ConditionVital SignsFirst Documented: Result Date Time Pulse Ox 98 01/05 1047 B/P 162/107 01/05 1047 B/P Mean 125 01/05 1047 O2 Delivery Room air 01/05 1047 Temp 97.4 01/05 1047 Pulse 94 01/05 1047 Resp 20 01/05 1047 Last Documented: Result Date Time Pulse Ox 98 01/05 1047 B/P 162/107 01/05 1047 B/P Mean 125 01/05 1047 O2 Delivery Room air 01/05 1047 Temp 97.4 01/05 1047 Pulse 94 01/05 1047 Resp 20 01/05 1047 All vital signs available at the time of this entry have been reviewed. Condition Improved Clinical ImpressionClinical ImpressionPrimary Impression: UTI (urinary tract infection)Secondary Impressions: Dysfunctional uterine bleedingTime of Impression 1212 Disposition DecisionDischarge )( Discharged to Home Yes )( Time 1212 )( Date 01/05/22 Discharge/Care PlanCounseled Regarding Diagnosis, Lab results, Prescriptions, Need for follow-up, When to return to ED(Auto) PrescriptionsCurrent Visit ScriptsNITROFURANTOIN/NITROFURAN MAC (MACROBID) 100 MG PO BID NITROFURANTOIN/NITROFURAN MAC (MACROBID) 100 MG PO BID #14 CAPS Until finished. Take with food. Patient Instructions ED Dysfunctional Uterine Bleeding, Urinary Tract Infectionsin WomenAdditional InstructionsYou were seen in the ER for your vaginal bleeding. While you were here, we did exam, and labs to rule out infective process and anemia. Your results showed noevidence of anemia whatsoever, but did show the presence of a urinary tract infection. Take the prescribed medications as directed. Follow-up with Dr. Ybarra for continuity of care. Return to the ER for any alarming symptoms. Discharge NoteI have spoken with the patient and/or caregivers. I have explained the patient'scondition, diagnoses and treatment plan based on the information available to meat this time. I have answered the patient's and/or caregiver's questions and addressed any concerns. The patient and/or caregivers have as good an understanding of the patient's diagnosis, condition and treatment plan as can beexpected at this point. The vital signs have been stable. The patient's condition is stable and appropriate for discharge from the emergency department. The patient will pursue further outpatient evaluation with the primary care physician or other designated or consulting physician as outlined in the discharge instructions. The patient and/or caregivers are agreeable to this planof care and follow-up instructions have been explained in detail. The patient and/or caregivers have received these instructions in written format and have expressed an understanding of the discharge instructions. The patient and/or caregivers are aware that any significant change in condition or worsening of symptoms should prompt an immediate return to this or the closest emergency department or a call to 911. Jake Ramey 01/05/22 1216:Interpretation Diagnostics Lab Results InterpretationResultsLaboratory Tests 01/05/22 1058:[Embedded Image Not Available]Laboratory Tests: 01/05 1058 Chemistry Sodium (134 - 147 mEq/L) 143 Potassium (3.4 - 5.0 mEq/L) 3.8 Chloride (100 - 108 mEq/L) 107 Carbon Dioxide (21 - 33 mEq/l) 24 Anion Gap (0 - 20) 15 BUN (7 - 18 mg/dL) 10 Creatinine (0.6 - 1.3 mg/dL) 0.9 Glomerular Filtr Rate (110 - 120) 75.7 L Glucose (70 - 110 mg/dL) 88 Calcium (8.0 - 10.5 mg/dL) 9.5 Hematology WBC (4.5 - 11.0 x10 3/uL) 9.0 RBC (3.54 - 5.02 x10 6/uL) 5.16 H Hgb (11.0 - 15.0 g/dL) 15.2 H Hct (33.0 - 45.0 %) 45.5 H MCV (81.0 - 99.0 fL) 88.2 MCH (27.0 - 33.0 pg) 29.5 MCHC (33.0 - 37.0 g/dL) 33.4 RDW (11.5 - 14.5 %) 12.2 Plt Count (150 - 400 x10 3/uL) 266 MPV (7.0 - 9.0 fL) 11.9 H Neut % (Auto) (56.0 - 77.0 %) 62.8 Lymph % (Auto) (14.0 - 32.0 %) 27.1 [place] % (Auto) (4.8 - 9.0 %) 7.2 Eos % (Auto) (0.3 - 3.7 %) 1.9 Baso % (Auto) (0.0 - 2.0 %) 0.7 Neut # (Auto) (2.0 - 7.6 x10 3/uL) 5.67 Lymph # (Auto) (1.0 - 3.8 x10 3/uL) 2.45 [place] # (Auto) (0.1 - 0.8 x10 3/uL) 0.65 Eos # (Auto) (0.0 - 0.2 x10 3/uL) 0.17 Baso # (Auto) (0.0 - 0.2 x10 3/uL) 0.06 Abs Immat Gran (auto) (0.00 - 0.03 x10 3/uL) 0.03 Add Manual Diff NO Immature Gran % (0.0 - 2.0 %) 0.3 Nucleated RBC % (0 - 0 %) 0.0 Nucleated RBCs # (Man) (0.0 - 0.1 x10 3/uL) 0.00 Miscellaneous Maternal Serum HCG < 2.6 Urines Urine Color (YEL/STRAW) ALVARO H Urine Appearance (CLEAR) CLOUDY H Urine pH (5.0 - 7.0) 5.0 Ur Specific [place] (1.005 - 1.030) 1.026 Urine Protein (NEGATIVE) 2+ H Urine Glucose (UA) (NEGATIVE) NEGATIVE Urine Ketones (NEGATIVE) NEGATIVE Urine Blood (NEGATIVE) 3+ H Urine Nitrite (NEGATIVE) NEGATIVE Urine Bilirubin (NEGATIVE) NEGATIVE Urine Urobilinogen (0.2 - 1.0 mg/dL) 0.2 Ur Leukocyte Esterase (NEGATIVE) NEGATIVE Urine RBC (0 - 3 RBC/HPF) >50 H Urine WBC (0 - 3 WBC/HPF) >50 H Ur Squamous Epith Cells (NONE SEEN /HPF) 0-5 Urine Bacteria (NONE SEEN /HPF) 2+ H Urine Mucus (NONE SEEN /LPF) 2+ H Microbiology: Date/Time Procedure - Status Source Growth 01/05 1058 Urine Culture - COMP URINE Re-Evaluation [facility] ED CourseMedication(s) OrderedMedication(s) Ordered:Electrolytic, Caloric, And Arin Sig/Nubia Start time Last Medication Dose Route Stop Time Status Admin Sodium Chloride 0 ASDIR PRN 01/05 1100 DCD IV 01/06 0956 Patient Discharge Departure Supervising Physician Note MidLv Saw Pt AloneI have reviewed the PA/CHIEF PRIVACY OFFICER's note and plan of care. I was available for consultation as needed at all times during the patient's visit in the emergency department. I agree with the clinical impression, plan and disposition. at 1216 at 0025RPT #:[id number] OF REPORTEDEmergency department [id number]:20:00G.[id number] ilable for patient npmaDUDIFEHFUZHWLR4736-13-37Z08:17:07 HCACL
[2024-02-02 20:09] LABS: Albumin/Globulin Ratio 1.2 (1.1-1.8); Anion Gap 9.6 mEq/L (5.0-15.0); Bilirubin Total 0.4 mg/dL (0.2-1.0); Globulin 3.3 g/dL (2.3-3.5); Potassium 3.6 mEq/L (3.5-5.1); Protein, Total 7.3 g/dL (6.4-8.2)
[2024-02-02 20:22] LABS: Absolute Basophils 0.1 K/uL (0-0.5); Absolute Eosinophils 0.3 K/uL (0-0.5); Absolute Lymphocytes (CBC) 3.3 K/uL (0.7-4.9); Absolute Monocytes 0.8 K/uL (0.1-1.3); Absolute Neutrophil 6.8 K/uL (1.8-8.0); Basophils % 0.7 % (0-1.3); Eosinophils % 3.1 % (0-4.4); Hemoglobin 12.9 g/dL (12.0-15.0); Lymphocytes % 28.8 % (15.3-44.8); MCH 30.3 pg (27.0-35.0); MCHC 34.1 g/dL (32.0-36.0); MCV 88.9 fL (80-100); MPV 10.1 fL (7.6-11.3); Monocytes % 6.8 % (3.3-12.3); Neutrophils % 60.6 % (41.7-73.7); Nucleated Red Blood Cells % 0.1 % (0-0); Platelets 215 thou/uL (152-406); RBC Red Blood Cell Count 4.27 M/uL (3.86-4.86); Red Cell Distribution Width 12.4 % (12.1-15.2)
--- NOTE | 2024-02-02 20:48 | RAD REPORT ---
EXAM DESCRIPTION: US - Transvaginal OB - 02/02/2024 8:23 pm CLINICAL HISTORY: ABD CRAMPING, COMPARISON: Transvaginal OB dated 03/24/2022 TECHNIQUE: Sonographic grayscale and color flow images of a first-trimester were obtained through transvaginal approach. FINDINGS: A single gestational sac seen along the lower uterine segment measuring 13.5 mm in average diameter, corresponding to gestational age of 6 weeks, while days. No pole or cardiac pulsatio ns are identified. No yolk sac is visualized. Maternal ovaries are unremarkable. No free fluid. IMPRESSION: 1. Single gestational sac seen along the lower uterine segment, with no pole or ca rdiac pulsations identified. Findings raise concern for termination. Please correlate with serial beta HCG levels.
--- NOTE | 2024-02-02 21:35 | EDPHYS ---
Physician Documentation [facility] Name: Dru Mcduffie Age: 28 yrs Sex: Female : 1995 Arrival Date: 02/02/2024 Time: 19:07 Bed 5 Private MD: ED Physician Ruben Mcdonnell HPI: 02/01 19:25 This 28 yrs old Female presents to ER via Unassigned with complaints of ec2 Vaginal Bleeding, + Preg <12wks. 19:25 Patient arrives today for evaluation of vaginal bleeding in setting of . ec2 Patient is approximately 12 weeks , states that she is suspecting miscarriage as she was told that she had a nonviable . Patient reports she is having significant vaginal bleeding in the concern which were prompted evaluation today. 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 States that she had recently received RhoGAM approximately 2 weeks ago.. 19:26 Patient is O- blood type.. ec2 20:22 28-year-old female EGA 12 weeks 0 days by sonogram, LMP 11/11/2023, 11 weeks 6 days by sp4 LMP, history of prior ectopic , -0-1-0 presents with worsening bleeding started 2 days ago associated with pelvic cramps and multiple blood clots. . Patient reports she was given RhoGAM by her HAT REN[employer] [address] Cortes with [facility]. . Historical: - Allergies: 19:33 No Known Allergies; rv - Home Meds: 19:33 None [Active]; rv - PMHx: 19:33 None; rv - PSHx: 19:33 knee; rv - Immunization history:: Adult Immunizations up to date. - Infectious Disease History:: Denies. - Social history:: Smoking status: Patient denies any tobacco usage or history of. - Family history:: not pertinent. ROS: 19:25 Constitutional: as per hpi ec2 21:30 All other systems are negative, sp4 Exam: 19:25 Constitutional: GEN: NAD Head: atraumatic Eyes: EOMI Ears: External ears are ec2 normal. CV: regular rate LUNGS: no respiratory distress ABD: non-distended SKIN: no evidence of rashes MSK: no evidence of trauma NEURO: moves all extremities equally 21:30 : Female rn informatics assisted exam. Speculum examination reveals products of sp4 conception in the cervical os with bright red vaginal bleeding, moderate amount of bright red vaginal bleeding. Otherwise unremarkable, Vital Signs: 19:38 BP 145 / 79; Pulse 67; Resp 17; Temp 98; Pulse Ox 99% on R/A; rv 19:38 Weight 104.33 kg; Height 5 ft. 9 in. ; ty 20:30 BP 147 / 81; Pulse 65; Resp 17; Pulse Ox 100% ; jj7 21:30 BP 141 / 84; Pulse 77; Resp 18; Pulse Ox 100% ; jj7 22:30 BP 143 / 92; Pulse 77; Resp 17; Pulse Ox 99% ; jj7 19:38 Body Mass Index 33.96 (104.33 kg, 175.26 cm) ty MDM: 19:16 Patient medically screened. ec2 19:26 Data reviewed: vital signs. ED course: Patient arrives today for evaluation of vaginal ec2 bleeding in setting of 12 weeks of . Examination remarkable for well-appearing nontoxic vitals otherwise in no acute distress. Will obtain lab work, ultrasonography. Patient unsure of dosage of RhoGAM she had previously received, instructed her to be beneficial in potentially prevent further complications, patient is unsure of for sure to proceed with this. I will order RhoGAM regardless and have her refuse if she no longer wants to proceed with it.. 20:02 Transition of care: After a detail discussion of the patient's case, care is ec2 transferred to Ruben Mcdonnell MD. 21:35 Differential diagnosis: delivery of infant, STD, ectopic . Consideration of sp4 Admission/Observation Escalation of care including admission/observation considered. Management of patient was discussed with the following: [employer]: LABORER [employer] REFINERY at [facility] . 02/01 19:58 Order name: Type and Screen EDDE 02/01 21:40 Order name: Antibody Identification EDDE 02/01 21:40 Order name: Fetalscreen EDDE 02/01 21:40 Order name: Cord Rh type [facility] 02/01 19:17 Order name: CBC with Diff; Complete Time: 20:24 ec2 02/01 19:17 Order name: CMP; Complete Time: 20:24 ec2 02/01 19:17 Order name: HCG-Quantitative; Complete Time: 20:24 ec2 02/01 20:25 Interpretation: HCGQ 4820. sp4 02/01 21:40 Order name: Rh Typing EDMS 02/01 21:40 Order name: Rhogam EDDE 02/01 19:17 Order name: Transvaginal OB US; Complete Time: 21:10 ec2 02/01 20:22 Order name: Pelvic Exam Setup; Complete Time: 21:32 sp4 Administered Medications: 21:45 Drug: Ondansetron IVP 4 mg IVP once; over 2 minutes Route: IVP; Site: left antecubital; jj7 22:50 Follow up: Response: Nausea is decreased jj7 21:49 Drug: NS 0.9% IV 1000 ml IV at 1 bolus Per protocol; 1000 mL bolus Route: IV; Rate: 1 jj7 bolus; Site: right antecubital; 22:45 Follow up: IV Status: Infusion continued upon transfer jj7 21:49 Drug: tranexamic acid 1000 mg IV at calculated rate once; administer at a rate not to jj7 exceed 100 mg per min Route: IV; Rate: calculated rate; Site: right antecubital; 21:59 Follow up: IV Status: Completed infusion jj7 22:46 Drug: Rho D Immune Globulin IM 300 mcg IM once Route: IM; Site: right deltoid; jj7 22:50 Follow up: Response: No adverse reaction jj7 Disposition Summary: 02/02/24 21:34 Transfer Ordered Notes: Transfer Location: [facility] sp4 Reason: Higher level of care sp4 Condition: Stable sp4 Problem: new sp4 Symptoms: have improved sp4 Accepting Physician: LABORER PETROLEUM REFINERY at [facility] (02/02/24 22:51) jj7 Diagnosis - Incomplete spontaneous with other complications sp4 - Delayed or excessive hemorrhage following incomplete spontaneous sp4 Discharge Instructions: - Discharge Summary Sheet ec2 - Incomplete Miscarriage ec2 Forms: - Medication Reconciliation Form sp4 - SBAR form sp4 Signatures: Dispatcher [employer] Lio Trent RN RN rv Johnson, Juwairiyah, RN RN jj7 Ruben Mcdonnell MD MD sp4 John Morel MD MD ec2 Corrections: (The following items were deleted from the chart) 19:17 19:17 CBC+H.LAB.BRZ ordered. EDMS EDMS 19:17 19:17 COMPREHENSIVE METABOLIC PANEL+C.LAB.BRZ ordered. EDMS EDMS 19:17 19:17 QUANTITATIVE HCG+C.LAB.BRZ ordered. EDMS EDMS 19:17 19:17 Transvaginal Ob+US.RAD.BRZ ordered. EDMS EDMS 19:58 19:17 ABO/RH TYPING+BB.LAB.BRZ ordered. EDMS EDMS 20:26 20:12 OB Limited+US.RAD.BRZ ordered. EDMS EDMS 21:26 21:07 Forearm Right+RAD.RAD.BRZ ordered. EDMS EDMS 22:39 21:07 Splint - Sugar Tong - Forearm ordered. sp4 jj7 22:51 21:34 LABORER [employer]ROLEUM REFINERY at [facility] sp4 jj7
--- NOTE | 2024-02-02 21:35 | ER ---
Nurse's Notes [facility] Name: Dru Mcduffie Age: 28 yrs Sex: Female : 1995 Arrival Date: 02/02/2024 Time: 19:07 Bed 5 Private MD: Diagnosis: Incomplete spontaneous with other complications;Delayed or excessive hemorrhage following incomplete spontaneous Presentation: 02/01 19:32 Chief complaint: Patient states: vaginal bleeding, lower abdominal cramping with nausea rv x 2 days. Coronavirus screen: At this time, the client does not indicate any symptoms associated with coronavirus-19. Ebola Screen: No symptoms or risks identified at this time. Initial Sepsis Screen: Does the patient meet any 2 criteria? No. Patient's initial sepsis screen is negative. Does the patient have a suspected source of infection? No. Patient's initial sepsis screen is negative. Risk Assessment: Do you want to hurt yourself or someone else? Patient reports no desire to harm self or others. Onset of symptoms was February 02, 2024. 19:32 Method Of Arrival: Ambulatory rv 19:32 Acuity: JONATHON 3 rv Triage Assessment: 19:33 General: Appears comfortable, Behavior is calm, cooperative. Pain: Denies pain. Neuro: rv Level of Consciousness is awake, alert, obeys commands, Oriented to person, place, time, situation. Cardiovascular: Capillary refill < 3 seconds Patient's skin is warm and dry. Respiratory: Airway is patent Respiratory effort is even, unlabored. GI: No signs and/or symptoms were reported involving the gastrointestinal system. : Reports vaginal bleeding that is. Derm: Skin is intact. Historical: - Allergies: 19:33 No Known Allergies; rv - Home Meds: 19:33 None [Active]; rv - PMHx: 19:33 None; rv - PSHx: 19:33 knee; rv - Immunization history:: Adult Immunizations up to date. - Infectious Disease History:: Denies. - Social history:: Smoking status: Patient denies any tobacco usage or history of. - Family history:: not pertinent. Screenin:34 [facility] ED Fall Risk Assessment (Adult) History of falling in the last 3 months, rv including since admission No falls in past 3 months (0 pts) Score/Fall Risk Level 0 - 2 = Low Risk Oriented to surroundings, Maintained a safe environment, Educated pt \T\ family on fall prevention, incl call for assistance when getting out of bed, Assessed \T\ reinforced patient's understanding of fall precautions. Abuse screen: Denies threats or abuse. Denies injuries from another. Nutritional screening: No deficits noted. Tuberculosis screening: No symptoms or risk factors identified. Assessment: 19:45 General: Appears in no apparent distress. uncomfortable, Behavior is calm, cooperative, jj7 appropriate for age. : Reports vaginal bleeding that is bright red, with clots, heavy flow. 22:33 Reassessment: REPORT GIVEN TO SIRISHA AT [facility] ER. jj7 22:44 Reassessment: EMS AT BEDSIDE TO TRANSFER PT. jj7 Vital Signs: 19:38 BP 145 / 79; Pulse 67; Resp 17; Temp 98; Pulse Ox 99% on R/A; rv 19:38 Weight 104.33 kg; Height 5 ft. 9 in. ; ty 20:30 BP 147 / 81; Pulse 65; Resp 17; Pulse Ox 100% ; jj7 21:30 BP 141 / 84; Pulse 77; Resp 18; Pulse Ox 100% ; jj7 22:30 BP 143 / 92; Pulse 77; Resp 17; Pulse Ox 99% ; jj7 19:38 Body Mass Index 33.96 (104.33 kg, 175.26 cm) ty ED Course: 19:10 Patient arrived in ED. ra3 19:11 John Morel MD is Attending Physician. ec2 19:17 Lio Vance, CJ is Primary Nurse. rv 19:32 HCG-Quantitative Sent. rv 19:32 CMP Sent. rv 19:32 CBC with Diff Sent. rv 19:33 Triage completed. rv 19:33 Arm band placed on right wrist. rv 19:34 No provider procedures requiring assistance completed. Inserted saline lock: 20 gauge rv in right antecubital area, using aseptic technique. Blood collected. 19:34 Patient has correct armband on for positive identification. Client placed on continuous rv cardiac and pulse oximetry monitoring. NIBP monitoring applied. 19:43 HCG-Quantitative Sent. rv 19:43 CMP Sent. rv 19:43 CBC with Diff Sent. rv 19:45 Provided Education on: USE OF CALL [employer]. jj7 20:02 Attending Physician role handed off by John Morel MD ec2 20:02 Ruben Mcdonnell MD is Attending Physician. ec2 20:25 Transvaginal OB US In Process Unspecified. EDMS 21:20 Assist provider with pelvic exam: Set up pelvic tray. Performed by Ruben Mcdonnell MD jj7 Patient tolerated well. LARGE AMOUNTS OF BLOOD AND CLOTS NOTED. 21:30 [facility] contacted for patient transfer, spoke with Karine. ty 21:34 Warm blanket given. Verbal reassurance given. Linen changed. jj7 21:38 Call with [facility] given to Provider for [id number]. ty 22:48 Patient transferred, IV remains in place. jj7 Administered Medications: 21:45 Drug: Ondansetron IVP 4 mg IVP once; over 2 minutes Route: IVP; Site: left antecubital; jj7 22:50 Follow up: Response: Nausea is decreased jj7 21:49 Drug: NS 0.9% IV 1000 ml IV at 1 bolus Per protocol; 1000 mL bolus Route: IV; Rate: 1 jj7 bolus; Site: right antecubital; 22:45 Follow up: IV Status: Infusion continued upon transfer jj7 21:49 Drug: tranexamic acid 1000 mg IV at calculated rate once; administer at a rate not to jj7 exceed 100 mg per min Route: IV; Rate: calculated rate; Site: right antecubital; 21:59 Follow up: IV Status: Completed infusion jj7 22:46 Drug: Rho D Immune Globulin IM 300 mcg IM once Route: IM; Site: right deltoid; jj7 22:50 Follow up: Response: No adverse reaction jj7 Medication: 19:34 VIS not applicable for this client. rv Outcome: 21:34 ER care complete, transfer ordered by . sp4 22:48 Transferred by ground EMS [facility]. to [facility], jj7 Transfer form completed. X-rays sent w/ patient. 22:48 Condition: good 22:51 Patient left the ED. jj7 Signatures: Dispatcher [employer] EDMS Lio Vance RN RN Brittany Santo RN RN jj7 Ruben Mcdonnell MD MD sp4 John Morel MD MD ec2 Bárbara Landaverde ra3 Chris Nascimento ty Corrections: (The following items were deleted from the chart) 19:39 19:32 Chief complaint: Patient states: vaginal bleeding. denies abd pain. rv rv 19:32 ABO/RH TYPING+BB.LAB.BRZ drawn and sent. rv EDMS 19:43 ABO/RH TYPING+BB.LAB.BRZ drawn and sent. EDMT
[2024-02-02] MEDS ORDERED: TRANEXAMIC ACID 1,000 MG/10 ML VIAL IV ONE (21:39)
[2024-02-02] MEDS ORDERED: NA CHLORIDE 0.9% 1,000 ML ONE (21:40)
[2024-02-02] MEDS ORDERED: NA CHLORIDE 0.9% 100 ML ONE (21:41)
[2024-02-02] MEDS ORDERED: ONDANSETRON 4 MG/2 ML VIAL ONE (21:57)
[2024-02-03 06:36] VITALS: BP 143/92; TEMP 98; O2SAT 99
== END 2024-02-02 22:51 | disposition short-term general hospital (02) ==
LOC: ER 19:07
DX: O03.1 Delayed or excessive hemorrhage following incomplete spontaneous abortion (principal)
CPT/HCPCS: 85025; 36415; 86900; 86850; 86870; 86901 ×2; 84702; 80053; 76817; 96372; 99285; J2790; J2405; J7030